=== PATIENT | female | born 1985 ===

== ENCOUNTER 2018-10-21 12:41 | Emergency (ER) | payer OTHER | END 2018-10-21 13:05 | disposition left against medical advice (07) | LOC: MADERS 12:41 | DX: M54.9 Dorsalgia, unspecified (principal); F17.210 Nicotine dependence, cigarettes, uncomplicated; F31.9 Bipolar disorder, unspecified; F41.9 Anxiety disorder, unspecified; Z79.899 Other long term (current) drug therapy | CPT/HCPCS: 99283 ==